=== PATIENT | male | born 1975 | race Caucasian/White ===

== ENCOUNTER 2021-02-14 13:50 | Emergency (ER) | payer SELFPAY ==
[2021-02-14 14:03] VITALS: BP 135/99; TEMP 98.4; BMI 25.0
[2021-02-14] MEDS ORDERED: KETOROLAC TROMETHAMINE 30 MG/1 ML VIAL IM ONE (14:33)
[2021-02-14] MEDS ORDERED: predniSONE 20 MG TABLET (UD) PO ONE (14:34)
[2021-02-14] MEDS ORDERED: predniSONE 20 MG TABLET (UD) ONE (14:36)
[2021-02-14] MEDS ORDERED: KETOROLAC TROMETHAMINE 30 MG/1 ML VIAL ONE (14:36)
[2021-02-14 15:23] VITALS: PULSE 98
== END 2021-02-14 15:42 | disposition home or self-care (01) ==
LOC: JERFT 13:50
PROC: 3E0233Z Introduction of Anti-inflammatory into Muscle, Percutaneous Approach (ICD-10-PCS; principal; 2021-02-14)
DX: M10.061 Idiopathic gout, right knee (principal)
CPT/HCPCS: 73562-TC-RT-FY; 73610-TC-RT-FY; 73630-TC-RT-FY; 99284-25